=== PATIENT | male | born 1995 | race American Indian/Alaskan Native ===

== ENCOUNTER 2017-07-16 11:23 | Emergency (ER) | payer OTHER ==
--- NOTE | 2017-07-16 11:54 | C.PDOC ---
History Of Present Illness 22 y/o M c no PMHx p/w sore throat x 3 days. Pain is worse with swallowing and voice is slightly altered. Denies dyspnea, stridor, drooling. Patient went to see PMD today who obtained positive rapid strep result. Due to patient's R sided neck swelling, sent to ER for further evaluation. Time Seen by Provider: 07/16/17 11:32 Chief Complaint (Nursing): ENT Problem Past Medical History Vital Signs: Last Vital Signs Temp 99 F 07/16/17 14:09 Pulse 74 07/16/17 14:09 Resp 18 07/16/17 14:09 BP 111/68 07/16/17 14:09 Pulse Ox 96 07/16/17 14:42 Family History: States: No Known Family Hx - Social History Hx Alcohol Use: No Hx Substance Use: No - Immunization History Hx Tetanus Toxoid Vaccination: No Hx Influenza Vaccination: No Hx Pneumococcal Vaccination: No Review Of Systems Except As Marked, All Systems Reviewed And Found Negative. Respiratory: Negative for: Cough, Shortness of Breath Gastrointestinal: Negative for: Vomiting Physical Exam - Physical Exam Additional Physical Exam Comments: Constitutional: No acute distress. Head: Normocephalic. Atraumatic. Eyes: PERRL. ENT: Moist mucous membranes. Erythema and tonsillar exudates present. No visible abscess within oral cavity. Uvula midline. No drooling. Neck:R sided neck mass. Cardiovascular: Regular rate. Radial pulses 2+ bilaterally. Chest: No tenderness. Respiratory: Clear to auscultation bilaterally. GI: Soft. Nontender. Nondistended. Back: No CVA tenderness. Musculoskeletal: No tenderness or swelling of extremities. Skin: No rash. Neurologic: Alert, no focal deficit ED Course And Treatment - Laboratory Results Result Diagrams: 07/16/17 11:57 07/16/17 11:57 O2 Sat by Pulse Oximetry: 96 - CT Scan/US NECK SOFT TISSUE W/CONTRAST Other Rad Studies (CT/US): Read By Radiologist, Radiology Report Reviewed CT/US Interpretation: IMPRESSION: 1. Marked adenopathy within the posterior cervical space bilaterally. This. accounts for the palpable mass on the right side of the neck. . 2. Edematous adenoids and lingual tonsils. No abscess.. . 3. Mild mucosal thickening within the maxillary sinuses bilaterally. Medical Decision Making Medical Decision Making: Amoxicllin prescribed, first dose here. Patient reports no difficulty with swallowing or drooling, will forego steroids. Ibuprofen for pain. F/u PMD, copy of CT provided. Return to ER for worsening pain, fever, drooling, dyspnea. Disposition - Disposition Disposition: HOME/ ROUTINE Disposition Time: 14:37 Condition: STABLE Additional Instructions: FINDINGS: Nasopharynx: Unremarkable. Oropharynx: Edema is noted within the lingual tonsils. No peritonsillar abscess. Hypopharynx: Unremarkable. Larynx: Unremarkable. Normal epiglottis. Trachea: Unremarkable. Retropharyngeal space: Edema is noted within the retropharyngeal space Submandibular/parotid glands: Unremarkable. Glands are normal in size. Thyroid: Unremarkable. No enlarged or calcified nodules. Bones/joints: No acute fracture. Soft tissues: The nasopharyngeal/adenoidal soft tissues are thickened and edematous. Vasculature: No acute findings. Lymph nodes: Lymph nodes are noted within the posterior cervical space bilaterally. At the level of the marker on the right side of the neck there is a grouping of lymph nodes. The largest measures approximately 1.9 x 1.2 x 2.2 cm. There are multiple lymph nodes this size within the posterior cervical space extending inferiorly into the neck. On the left there are multiple posterior cervical lymph nodes. The largest on the left measures 1.4 x 1.1 x 1.9 cm. There are multiple lymph nodes of this size within the posterior cervical chain from the skull base to the neck. Submental lymph nodes measuring less than a centimeter are present. Sinuses: Minimal mucosal thickening is noted in the maxillary sinuses bilaterally. Mild mucosal thickening extends into the ethmoid air cells bilaterally. Lung apices: Unremarkable as visualized. Other findings: No abscess seen. IMPRESSION: 1. Marked adenopathy within the posterior cervical space bilaterally. This accounts for the palpable mass on the right side of the neck. 2. Edematous adenoids and lingual tonsils. No abscess.. 3. Mild mucosal thickening within the maxillary sinuses bilaterally. Prescriptions: Amoxicillin 875 mg PO BID #19 tablet Instructions: Strep Throat (ED), Lymphadenopathy (ED) Forms: [employer] (Maltese) - Clinical Impression Clinical Impression: Strep throat, Lymphadenopathy
[2017-07-16 12:01] LABS: BASO # 0.1 K/uL (0.0-0.2); EOS % 0.1 % (0.0-4.0); HEMATOCRIT 40.5 % (35.0-51.0); LYMPH # 2.4 K/uL (1.0-4.3); LYMPH % 36.4 % (20.0-40.0); MEAN CELL VOLUME 80.4 fL (80.0-94.0); MEAN CORPUSCULAR HEMOGLOBIN 25.7 pg (27.0-31.0); MEAN PLATELET VOLUME 7.4 fL (7.2-11.7); MONO % 14.9 % (0.0-10.0); NRBC % 0.1 % (0.0-2.0); PLATELET COUNT 240 K/uL (130-400); RED CELL DISTRIBUTION WIDTH 12.5 % (11.5-14.5); WHITE BLOOD COUNT 6.7 K/uL (4.8-10.8)
[2017-07-16 12:10] LABS: CHLORIDE 98 mmol/L (98-107)
[2017-07-16 12:11] LABS: SODIUM 136 mmol/L (132-148)
[2017-07-16 12:13] LABS: ALB/GLOB RATIO 1.1 (1.0-2.1); ALKALINE PHOSPHATASE 117 U/L (38-126); AST/SGOT 74 U/L (17-59); BILIRUBIN,TOTAL 1.5 mg/dL (0.2-1.3); BLOOD UREA NITROGEN 10 mg/dL (9-20); CARBON DIOXIDE 26 mmol/L (22-30); GFR AFRICAN-AMERICAN > 60; TOTAL PROTEIN 8.2 g/dL (6.3-8.3)
[2017-07-16 12:14] LABS: ALT/SGPT 80 U/L (21-72); CALCIUM 9.3 mg/dl (8.6-10.4); GLUCOSE,RANDOM 97 mg/dL (75-110)
[2017-07-16 12:17] LABS: INR 1.3
[2017-07-16 12:30] LABS: NEUTROPHIL 49 % (50-75); REACTIVE LYMPHOCYTES 5 % (0-0); TOTAL CELLS COUNTED 100
[2017-07-16] MEDS ORDERED: Iodixanol 320 MG/ML 100 ML BOTTLE IV ONE (13:32)
--- NOTE | 2017-07-16 14:38 | CT ---
EXAM: CT Neck With Intravenous Contrast EXAM DATE/TIME: Exam ordered 07/16/2017 11:41 AM CLINICAL HISTORY: 22 years old, male; Signs and symptoms; Mass, lump, or swelling in neck; Additional info: Strep throat, r neck mass TECHNIQUE: Axial computed tomography images of the neck with intravenous contrast. All CT scans at this facility use one or more dose reduction techniques, viz.: automated exposure control; ma/kV adjustment per patient size (including targeted exams where dose is matched to indication; i.e. head); or iterative reconstruction technique. Coronal and sagittal reformatted images were created and reviewed. CONTRAST: 100 mL of visipaque administered intravenously. COMPARISON: No relevant prior studies available. FINDINGS: Nasopharynx: Unremarkable. Oropharynx: Edema is noted within the lingual tonsils. No peritonsillar abscess. Hypopharynx: Unremarkable. Larynx: Unremarkable. Normal epiglottis. Trachea: Unremarkable. Retropharyngeal space: Edema is noted within the retropharyngeal space Submandibular/parotid glands: Unremarkable. Glands are normal in size. Thyroid: Unremarkable. No enlarged or calcified nodules. Bones/joints: No acute fracture. Soft tissues: The nasopharyngeal/adenoidal soft tissues are thickened and edematous. Vasculature: No acute findings. Lymph nodes: Lymph nodes are noted within the posterior cervical space bilaterally. At the level of the marker on the right side of the neck there is a grouping of lymph nodes. The largest measures approximately 1.9 x 1.2 x 2.2 cm. There are multiple lymph nodes this size within the posterior cervical space extending inferiorly into the neck. On the left there are multiple posterior cervical lymph nodes. The largest on the left measures 1.4 x 1.1 x 1.9 cm. There are multiple lymph nodes of this size within the posterior cervical chain from the skull base to the neck. Submental lymph nodes measuring less than a centimeter are present. Sinuses: Minimal mucosal thickening is noted in the maxillary sinuses bilaterally. Mild mucosal thickening extends into the ethmoid air cells bilaterally. Lung apices: Unremarkable as visualized. Other findings: No abscess seen. IMPRESSION: 1. Marked adenopathy within the posterior cervical space bilaterally. This accounts for the palpable mass on the right side of the neck. 2. Edematous adenoids and lingual tonsils. No abscess.. 3. Mild mucosal thickening within the maxillary sinuses bilaterally.
[2017-07-16 14:40] VITALS: O2SAT 96
[2017-07-16 14:51] VITALS: BP 128/76; PULSE 83; RESP 20; TEMP 99.1
== END 2017-07-16 14:59 | disposition home or self-care (01) ==
LOC: C.ER 11:23
DX: J02.0 Streptococcal pharyngitis (principal); R59.1 Generalized enlarged lymph nodes
CPT/HCPCS: 70491; 80053; 85025; 85610; 85730; 86850; 86900; 96374; 99284; J1885; Q9967